=== PATIENT | female | born 1980 | race Caucasian/White ===

== ENCOUNTER 2017-02-02 11:46 | Inpatient (IN) | payer OTHER ==
[2017-02-02] VITALS (10 sets, daily range): BP systolic 112–127; BP diastolic 67–74; PULSE 66–88; RESP 16–18; TEMP 98.1–98.8
[~2017-02-02] VITALS: Ht 170.2 cm; Wt 80.0 kg
[~2017-02-02 11:46] MED LIST: PRENCAP6 PO; VITA500S3 PO
--- NOTE | 2017-02-02 14:24 | HHI.PR ---
[employer]ER Note Note 36yo at 40 weeks gestation [address] Santos due to advanced cervical dilation for AROM. FHR 140, reactive with no decelerations. Cervix 6-7/90/-1, vertex. AROM performed with clear fluid obtained. Mary Santiago MD Feb 02, 2017 14:24
[2017-02-02 14:48] LABS: AUTOMATED NEUTROPHIL # 6.5 TH/MM3 (1.8-7.7); BASOPHIL % 0.2 % (0.0-2.0); EOSINOPHIL # 0.1 TH/MM3 (0-0.4); HEMATOCRIT 34.2 % (35.0-46.0); HEMO FLAGS DIFF FINAL; LYMPH % 21.8 % (9.0-44.0); MEAN CELL VOLUME 90.3 FL (80.0-100.0); MEAN CORPUSCULAR HEMOGLOBIN 30.7 PG (27.0-34.0); PLATELET COUNT 280 TH/MM3 (150-450); RED BLOOD COUNT 3.78 MIL/MM3 (4.00-5.30); WHITE BLOOD COUNT 9.1 TH/MM3 (4.0-11.0)
[2017-02-02 14:57] LABS: BLOOD, URINE NEG (NEG); GLUCOSE,URINE NEG (NEG); KETONE, URINE NEG (NEG); NITRITE,URINE NEG (NEG); PH, URINE 5.5 (5.0-8.5); SQUAMOUS EPITHELIAL CELL URINE 1 /hpf (0-5); URINE COLOR LIGHT-YELLOW (YELLW/STRAW)
[2017-02-02 14:58] LABS: COMMENT (UR) CULT NOT INDICATED; CULTURE IF INDICATED CULT NOT INDICATED
[2017-02-02] MEDS: LACTATED RINGER'S 1000 ML IV SCH (15:00)
[2017-02-02] MEDS ORDERED: LIDOCAINE HCL 1% 50 ML VIAL INFIL PRN (15:00)
[2017-02-02] MEDS ORDERED: LACTATED RINGER'S 1000 ML BOLUS IV PRN (15:00)
[2017-02-02] MEDS ORDERED: OXYTOCIN 30 UNITS 500ML PREMIX IV ONE (15:00)
[2017-02-02] MEDS ORDERED: NS 1000 ML IV PRN (15:00)
[2017-02-02] MEDS ORDERED: NS 500 ML BOLUS IV PRN (15:00)
[2017-02-02] MEDS ORDERED: LIDOCAINE HCL 1% 50 ML VIAL I-DERMAL PRN (15:00)
[2017-02-02] MEDS ORDERED: CITRIC ACID-SODIUM CITRATE LIQ 30 ML UDC PO SCH (15:00)
[2017-02-02] MEDS ORDERED: MINERAL OIL 10 ML VIAL TOPICAL PRN (15:00)
[2017-02-02] MEDS ORDERED: MEASLES, MUMPS, RUBELLA VACCINE 0.5 ML VIAL SQ ONE (16:00)
[2017-02-02] MEDS ORDERED: DIPHTH/TETANUS/ACEL PERTUSSIS (BOOSTER) 0.5 ML VIAL/PFS IM ONE (16:00)
--- NOTE | 2017-02-02 16:01 | PD.OB.DELI ---
Weeks gestation: 40 Pt started active labor?: Yes Active labor start date: Feb 02, 2017 Active labor start time: 14:00 Medical induction of labor?: Yes Medical induction start date: Feb 02, 2017 Medical induction start time: 14:00 Artificial rupture of membrane: Yes Artificial ROM date: Feb 02, 2017 Artifical ROM time: 14:00 Anesthesia: None Episiotomy: None Vaginal Delivery: Normal, Spontaneous Presentation: Occiput anterior Nuchal Cord: x1 Delayed cord clamping (45 sec): Yes : Female Delivery date: Feb 02, 2017 Delivery time: 15:36 One Minute : 8 Five Minute : 9 Placenta: Spontaneous delivery, Intact Laceration: Vaginal laceration, 2 deg Repair: Chromic running Estimated blood loss: 200cc Mary Santiago MD Feb 02, 2017 16:01
[2017-02-02] MEDS ORDERED: IBUPROFEN 800 MG TAB PO PRN (16:15)
[2017-02-02] MEDS ORDERED: ONDANSETRON ODT 4 MG TAB PO PRN (16:15)
[2017-02-02] MEDS ORDERED: SODIUM CHLORIDE 0.9% FLUSH 10 ML FLUSH IV FLUSH PRN (16:15)
[2017-02-02] MEDS ORDERED: ALUMINUM/MAGNESIUM/SIMETH 30 ML CUP PO PRN (16:15)
[2017-02-02] MEDS ORDERED: ACETAMINOPHEN 325 MG TAB PO PRN (16:15)
[2017-02-02] MEDS ORDERED: DOCUSATE SODIUM 50 MG/SENNA 8.6 MG TAB PO PRN (16:15)
[2017-02-02] MEDS ORDERED: BENZOCAINE 20% TOPICAL SPRAY 60 ML CAN TOPICAL PRN (16:15)
[2017-02-02] MEDS ORDERED: OXYTOCIN 30 UNITS-500ML PREMIX 500 ML IV SCH (16:15)
[2017-02-02] MEDS: WITCH HAZEL 50%/GLYCERIN 12.5% 40 PAD JAR TOPICAL PRN (17:01)
[2017-02-03] MEDS: WITCH HAZEL 50%/GLYCERIN 12.5% 40 PAD JAR TOPICAL PRN (08:18)
[2017-02-03 08:25] VITALS: BP 123/87; PULSE 78; RESP 16; TEMP 98.4; O2SAT 98
--- NOTE | 2017-02-03 11:56 | HHI.OB ---
Subjective Post Day: 1 Remarks doing well and considering discharge if baby can go home Objective Vitals/I&O Vital Signs Date Time Temp Pulse Resp B/P (MAP) Pulse Ox O2 Delivery O2 Flow Rate FiO2 02/03/17 08:25 98.4 98 02/03/17 08:25 78 16 123/87 (99) 02/02/17 19:10 98.8 75 16 123/74 (90) 02/02/17 16:59 18 02/02/17 16:46 67 112/74 (87) 02/02/17 16:45 18 02/02/17 16:44 66 124/67 (86) 02/02/17 16:04 18 02/02/17 16:00 86 125/74 (91) 02/02/17 15:57 18 02/02/17 15:45 88 127/73 (91) 02/02/17 14:53 98.1 02/02/17 14:53 18 Objective Remarks GENERAL: Well-nourished, well-developed patient. CARDIOVASCULAR: Regular rate and rhythm without murmurs, gallops, or rubs. RESPIRATORY: Breath sounds equal bilaterally. No accessory muscle use. ABDOMEN/GI: Abdomen soft, non-tender. Fundus: Firm, non-tender at umbilicus. GENITOURINARY: Light to moderate bleeding. EXTREMITIES: No cyanosis or edema, non-tender, without signs of DVT. Medications and IVs Current Medications Medications (Trade) Dose Ordered Sig/Kindra Route Start Time Stop Time Status Last Admin Lactated Ringer's 1,000 ml @ 125 mls/hr Q8H IV 02/02/17 15:00 02/02/17 15:00 Lactated Ringer's 1,000 ml @ 3,000 mls/hr BOLUS PRN IV 02/02/17 15:00 Sodium Chloride 500 ml @ 1,000 mls/hr BOLUS PRN IV 02/02/17 15:00 Sodium Chloride 1,000 ml @ 100 mls/hr Q10H PRN IV 02/02/17 15:00 (Xylocaine 1% Inj (50 ml)) 0.1 ml UNSCH X1 PRN I-DERMAL 02/02/17 15:00 02/22/17 14:59 (Bicitra Liq) 30 ml BUILDING RENTAL MANAGER PO 02/02/17 15:00 02/05/17 14:59 (fentaNYL INJ) 50 mcg Q1H PRN IV PUSH 02/02/17 15:00 (fentaNYL INJ) 100 mcg Q1H PRN IV PUSH 02/02/17 15:00 (Xylocaine 1% Inj (50 ml)) 10 ml UNSCH X1 PRN INFIL 02/02/17 15:00 03/04/17 14:59 02/02/17 16:13 (Muri-Lube Oil) 10 ml UNSCH PRN TOPICAL 02/02/17 15:00 (NS Flush) 2 ml BID IV FLUSH 02/02/17 21:00 (NS Flush) 2 ml UNSCH PRN IV FLUSH 02/02/17 16:15 (Tylenol) 650 mg Q4H PRN PO 02/02/17 16:15 (Motrin) 800 mg Q8H PRN PO 02/02/17 16:15 (Americaine 20% Top Spr) 1 spray Q4H PRN TOPICAL 02/02/17 16:15 02/02/17 17:01 (Tucks Pads) 1 applic QID PRN TOPICAL 02/02/17 16:15 02/03/17 08:18 (Jennyfer-Colace) 2 tab Q12H PRN PO 02/02/17 16:15 (Mag-Al Plus Susp Liq) 15 ml Q8H PRN PO 02/02/17 16:15 (Zofran Odt) 4 mg Q6H PRN PO 02/02/17 16:15 Assessment/Plan Assessment and Plan doing well after precipitous delivery no concerns nursing well home today if baby can leave after 4 Shwetha Contreras MD Feb 03, 2017 11:56
--- NOTE | 2017-02-03 11:58 | HHI.DCPOC ---
Discharge Care Plan Report Symptoms to Your Doctor -Temperature above 100.5 degrees -Redness, of incision or excessive or foul smelling drainage -Unusual pain or calf pain -Increased vaginal bleeding -Painful or difficulty urinating -Feelings of extreme sadness or anxiety after 2 weeks Goals to Promote Your Health * To prevent worsening of your condition and complications * To maintain your health at the optimal level Directions to Meet Your Goals Take your medications as prescribed Follow your dietary instruction Follow activity as directed Ensure plenty of rest for recovery Drink fluids for hydration Keep your appointments as scheduled Take your immunizations and boosters as scheduled If your symptoms worsen call your PCP, if no PCP go to Urgent Care Center or Emergency Room Smoking is Dangerous to Your Health. Avoid second hand smoke Call the 24-hour crisis hotline for domestic abuse at Shwetha Contreras MD Feb 03, 2017 11:58
--- NOTE | 2017-02-03 13:06 | MH ---
cc: TRISH PAGE DATE OF ADMISSION: 02/02/2017 HISTORY OF PRESENT ILLNESS She is 36 years old, 3, para 1-0-1-1, intrauterine at 40 weeks, 5 cm dilated in the office. care with [facility], uncomplicated. Group B Strep was negative. PAST OB HISTORY Significant for one vaginal delivery at 37 weeks and one molar in 2016. PAST LOGISTICS ENGINEER HISTORY She had a colposcopy in 2006. D&C in 2015. Last Pap smear was normal in August of 2015. PAST MEDICAL HISTORY She denies hypertension, diabetes or asthma. PAST SURGICAL HISTORY She has had a D&C in 2016. SOCIAL HISTORY She denies toxic habits. MEDICATIONS She takes vitamins. ALLERGIES She has no known drug allergies. ALLERGY TO LOBSTER AND TILAPIA. PHYSICAL EXAMINATION VITAL SIGNS: On physical exam her vital signs are stable. Blood pressure is 120/80. She is 178 pounds. HEAD, HEART, CHEST, LUNG EXAMS: Within normal limits. ABDOMEN: Soft, nontender, gravid. PELVIC: On vaginal exam she is 5 cm dilated, 90% effaced, 0 station, vertex. EXTREMITIES: No edema, cyanosis, clubbing, nontender. ASSESSMENT AND PLAN She is 36 years old, 3, para 1-0-1-1, intrauterine at 40 weeks in early labor. She was sent to Labor and Delivery AROM, possible Pitocin, analgesia as needed. MD ASH Fair/RHINA /12:12 PM /12:54 PM
[2017-02-03] MEDS: LACTATED RINGER'S 1000 ML IV SCH (16:30)
[2017-02-03] MEDS: SODIUM CHLORIDE 0.9% FLUSH 10 ML FLUSH IV FLUSH SCH (16:31)
[2017-02-03 20:00] VITALS: BP 126/71; PULSE 67; RESP 18; TEMP 97.9
[2017-02-04] MEDS: LACTATED RINGER'S 1000 ML IV SCH (07:00)
[2017-02-04] MEDS: SODIUM CHLORIDE 0.9% FLUSH 10 ML FLUSH IV FLUSH SCH (07:09)
--- NOTE | 2017-02-04 07:50 | HHI.DCPOC ---
Discharge Care Plan Report Symptoms to Your Doctor -Temperature above 100.5 degrees -Redness, of incision or excessive or foul smelling drainage -Unusual pain or calf pain -Increased vaginal bleeding -Painful or difficulty urinating -Feelings of extreme sadness or anxiety after 2 weeks Goals to Promote Your Health * To prevent worsening of your condition and complications * To maintain your health at the optimal level Directions to Meet Your Goals Take your medications as prescribed Follow your dietary instruction Follow activity as directed Ensure plenty of rest for recovery Drink fluids for hydration Keep your appointments as scheduled Take your immunizations and boosters as scheduled If your symptoms worsen call your PCP, if no PCP go to Urgent Care Center or Emergency Room Smoking is Dangerous to Your Health. Avoid second hand smoke Call the 24-hour crisis hotline for domestic abuse at Shwetha Contreras MD Feb 04, 2017 07:50
--- NOTE | 2017-02-04 07:50 | HHI.OB ---
Subjective Post Day: 2 Remarks Doing well and ready for discharge\ nursing comfortably Objective Vitals/I&O Vital Signs Date Time Temp Pulse Resp B/P (MAP) Pulse Ox O2 Delivery O2 Flow Rate FiO2 02/03/17 20:00 97.9 02/03/17 20:00 67 18 126/71 (89) 02/03/17 08:25 98.4 98 02/03/17 08:25 78 16 123/87 (99) Objective Remarks GENERAL: Well-nourished, well-developed patient. CARDIOVASCULAR: Regular rate and rhythm without murmurs, gallops, or rubs. RESPIRATORY: Breath sounds equal bilaterally. No accessory muscle use. ABDOMEN/GI: Abdomen soft, non-tender. Fundus: Firm, non-tender at umbilicus. GENITOURINARY: Light to moderate bleeding. EXTREMITIES: No cyanosis or edema, non-tender, without signs of DVT. Medications and IVs Current Medications Medications (Trade) Dose Ordered Sig/Kindra Route Start Time Stop Time Status Last Admin Lactated Ringer's 1,000 ml @ 125 mls/hr Q8H IV 02/02/17 15:00 02/02/17 15:00 Lactated Ringer's 1,000 ml @ 3,000 mls/hr BOLUS PRN IV 02/02/17 15:00 Sodium Chloride 500 ml @ 1,000 mls/hr BOLUS PRN IV 02/02/17 15:00 Sodium Chloride 1,000 ml @ 100 mls/hr Q10H PRN IV 02/02/17 15:00 (Xylocaine 1% Inj (50 ml)) 0.1 ml UNSCH X1 PRN I-DERMAL 02/02/17 15:00 02/22/17 14:59 (Bicitra Liq) 30 ml LANDSCAPE CREW MEMBER PO 02/02/17 15:00 02/05/17 14:59 (fentaNYL INJ) 50 mcg Q1H PRN IV PUSH 02/02/17 15:00 (fentaNYL INJ) 100 mcg Q1H PRN IV PUSH 02/02/17 15:00 (Xylocaine 1% Inj (50 ml)) 10 ml UNSCH X1 PRN INFIL 02/02/17 15:00 03/04/17 14:59 02/02/17 16:13 (Muri-Lube Oil) 10 ml UNSCH PRN TOPICAL 02/02/17 15:00 (NS Flush) 2 ml BID IV FLUSH 02/02/17 21:00 (NS Flush) 2 ml UNSCH PRN IV FLUSH 02/02/17 16:15 (Tylenol) 650 mg Q4H PRN PO 02/02/17 16:15 (Motrin) 800 mg Q8H PRN PO 02/02/17 16:15 (Americaine 20% Top Spr) 1 spray Q4H PRN TOPICAL 02/02/17 16:15 02/02/17 17:01 (Tucks Pads) 1 applic QID PRN TOPICAL 02/02/17 16:15 02/03/17 08:18 (Jennyfer-Colace) 2 tab Q12H PRN PO 02/02/17 16:15 02/03/17 18:51 (Mag-Al Plus Susp Liq) 15 ml Q8H PRN PO 02/02/17 16:15 (Zofran Odt) 4 mg Q6H PRN PO 02/02/17 16:15 Assessment/Plan Assessment and Plan doing well after precipitous delivery no concerns nursing well home today if baby can leave after 4 02/04/17 Doing well and ready for discharge Shwetha Contreras MD Feb 04, 2017 07:50
[2017-02-04 08:00] VITALS: BP 116/85; PULSE 88; RESP 16; TEMP 98
== END 2017-02-04 12:41 | disposition home or self-care (01) | DRG 775 ==
LOC: H2EB 11:46 → H1EA 17:35
PROVIDERS: ADMIT Obstetrics & Gynecology; ATTEND Obstetrics & Gynecology
PROC: 10E0XZZ Delivery of Products of Conception, External Approach (ICD-10-PCS; principal; 2017-02-02)
PROC: 0KQM0ZZ Repair Perineum Muscle, Open Approach (ICD-10-PCS; 2017-02-02)
PROC: 10907ZC Drainage of Amniotic Fluid, Therapeutic from Products of Conception, Via Natural or Artificial Opening (ICD-10-PCS; 2017-02-02)
DX: O70.1 Second degree perineal laceration during delivery (principal); Z37.0 Single live birth; O62.3 Precipitate labor; Z3A.40 40 weeks gestation of pregnancy
CPT/HCPCS: 59025; 80307; 81001; 85025; 85461; 86850; 86900; 86901; 90384; 90715; J2590; J2790; J7120